=== PATIENT | male | born 1960 | race Two or more races ===

== ENCOUNTER 2017-03-21 07:42 | Day surgery (SDC) | payer OTHER ==
[2017-03-20 13:23] LABS: BASOPHIL % 0.6 % (0-2); PLATELET COUNT 247 x10^3mcL (130-400); RED CELL DISTRIBUTION WIDTH 12.5 % (11.5-14.5)
[2017-03-20 15:27] LABS: ALBUMIN 3.9 g/dL (3.4-5.0); ALKALINE PHOSPHATASE 75 U/L (46-116); ALT/SGPT 33 U/L (16-63); AST/SGOT 19 U/L (15-37); BILIRUBIN TOTAL 0.84 mg/dL (0.20-1.00); CALCIUM 9.2 mg/dL (8.5-10.1); CARBON DIOXIDE 26.9 mmol/L (21-32); CHLORIDE SERUM 103 mmol/L (98-107); CREATININE SERUM 0.8 mg/dL (0.7-1.3); GFR1 > 60 mL/min; GLUCOSE SERUM 110 mg/dL (74-106); POTASSIUM SERUM 3.9 mmol/L (3.5-5.1); SODIUM SERUM 141 mmol/L (136-145)
[~2017-03-21] VITALS: Ht 167.6 cm; Wt 74.4 kg
[2017-03-21 08:06] VITALS: BP 147/81
[2017-03-21 13:04] VITALS: BP 138/90
== END 2017-03-21 13:00 | disposition home or self-care (01) ==
LOC: DS 07:42 → OR 09:00 → DS 09:00
PROVIDERS: Neuromusculoskeletal Medicine, Sports Medicine
PROC: 0RBN0ZZ Excision of Right Wrist Joint, Open Approach (ICD-10-PCS; 2017-03-21)
PROC: 01N50ZZ Release Median Nerve, Open Approach (ICD-10-PCS; principal; 2017-03-21 09:00)
DX: G56.01 Carpal tunnel syndrome, right upper limb (principal); M65.9 Synovitis and tenosynovitis, unspecified
CPT/HCPCS: J0690; J2250; J2704; J3010; J3490; J7030; J7120